=== PATIENT | male | born 1945 | race Caucasian/White ===

== ENCOUNTER 2017-07-20 16:13 | Emergency (ER) | payer OTHER, MEDICARE ==
[~2017-07-20] VITALS: Ht 172.7 cm; Wt 84.4 kg
[~2017-07-20 16:13] MED LIST: ASPIR LOW81 MG PO; LISINOPRIL20 MG PO; PERCOCET 325 MG1 TA2 PO; SPIRIVA18 MCG PO
[2017-07-20] MEDS ORDERED: VIBRAMYCIN100 MG PO (18:21)
[2017-07-20] MEDS ORDERED: MEDROL DOSEPAK4 MG PO (18:21)
== END 2017-07-20 17:11 | disposition home or self-care (01) ==
LOC: ED 16:13
DX: J44.1 Chronic obstructive pulmonary disease with (acute) exacerbation (principal); Z79.82 Long term (current) use of aspirin; Z79.899 Other long term (current) drug therapy

== ENCOUNTER 2018-05-20 16:48 | Emergency (ER) | payer OTHER, MEDICARE ==
[~2018-05-20] VITALS: Ht 172.7 cm; Wt 68.0 kg
[~2018-05-20 16:48] MED LIST changes: +MEDROL DOSEPAK4 MG PO; +VIBRAMYCIN100 MG PO
[2018-05-20 17:18] LABS: BILIRUBIN NEGATIVE (NEGATIVE); BLOOD TRACE-INTACT (NEGATIVE); CLARITY CLEAR (CLEAR); COLOR YELLOW (YELLOW); GLUCOSE NEGATIVE (NEGATIVE); KETONE 1+ (NEGATIVE); LEUKO ESTERASE NEGATIVE (NEGATIVE); NITRITE NEGATIVE (NEGATIVE); PH 5.5 (5.0-9.0); SPECIFIC GRAVITY >= 1.030 (1.005-1.030); UROBILINOGEN 0.2 E.U./dl (0.2-1.0)
[2018-05-20 17:23] LABS: BASO # 0.1 10*3/uL (0.0-0.1); BASO % 0.9 % (0.0-1.0); EOS # 0.2 10*3/uL (0.0-0.4); EOS % 2.1 % (1.0-4.0); HEMATOCRIT 44.9 % (42.0-52.0); HEMOGLOBIN 15.1 g/dl (14.0-18.0); LYMPH # 1.8 10*3/uL (1.3-4.4); LYMPH % 24.5 % (27.0-41.0); MEAN CELL VOLUME 95.7 fl (80.0-94.0); MEAN CORPUSCULAR HGB 32.2 pg (27.0-31.0); MEAN CORPUSCULAR HGB CONC 33.6 g/dl (33.0-37.0); MEAN PLATELET VOLUME 9.7 fl (9.6-12.3); MONO # 1.1 10*3/uL (0.1-1.0); NEUT # 4.3 10*3/uL (2.3-7.9); PLATELET COUNT AUTOMATED 234 10*3/uL (130-400); RED BLOOD COUNT 4.69 10*6/uL (4.50-5.90); RED CELL DISTRI WIDTH 13.5 % (0-14.5); WHITE BLOOD COUNT 7.5 10*3/uL (4.8-10.8)
[2018-05-20 17:28] LABS: BACTERIA TRACE; MUCOUS 1+
[2018-05-20 17:40] LABS: ALBUMIN 3.7 gm/dl (3.1-4.5); ALKALINE PHOSPHATASE 30 U/L (45-117); BUN 26 mg/dl (7-24); CHLORIDE 104 mmol/L (98-107); CREATININE 0.88 mg/dL (0.70-1.30); POTASSIUM 4.2 mmol/L (3.5-5.1); SGOT/AST 26 IU/L (3-35); SGPT/ALT 33 U/L (12-78); SODIUM 137 mmol/L (136-145); TOTAL PROTEIN 7.2 gm/dL (6.4-8.2)
[2018-05-20] MEDS ORDERED: FLOMAX0.4 MG PO (19:01)
== END 2018-05-20 19:08 | disposition home or self-care (01) ==
LOC: ED 16:48
PROVIDERS: Physician Assistant
DX: N20.0 Calculus of kidney (principal); Z90.89 Acquired absence of other organs; Z79.82 Long term (current) use of aspirin; Z85.46 Personal history of malignant neoplasm of prostate